=== PATIENT | female | born 1945 | race Caucasian/White ===

== ENCOUNTER → 2019-10-17 | Outpatient (CLI) | payer OTHER ==
[~2019-10-17] MED LIST: ASPIRIN EC81 M1 PO; FLEXERIL PO; HYDROCODON-ACE1 EAC5 PO; NORCO 5-325 TA1 EACH PO; SERTRALINE HCL100 MG PO; SYNTHROID25 MCG PO; SYNTHROID50 MCG PO; VITAMIN D32000 UNI1 PO; VYTORIN 10-401 EACH PO
== END ==
LOC: SJCVC 14:30
PROVIDERS: ATTEND Internal Medicine
DX: K21.9 Gastro-esophageal reflux disease without esophagitis (principal); E78.5 Hyperlipidemia, unspecified; R07.9 Chest pain, unspecified

== ENCOUNTER → 2021-01-14 | Outpatient (CLI) | payer OTHER, BC | LOC: SJCVC 09:21 | DX: E78.5 Hyperlipidemia, unspecified (principal); K21.9 Gastro-esophageal reflux disease without esophagitis; Z82.49 Family history of ischemic heart disease and other diseases of the circulatory system; Z79.899 Other long term (current) drug therapy; E78.00 Pure hypercholesterolemia, unspecified; Z98.890 Other specified postprocedural states ==